=== PATIENT | female | born 1940 | race Caucasian/White ===

== ENCOUNTER 2019-05-13 09:26 | Emergency (ER) | payer OTHER ==
[~2019-05-13] VITALS: Ht 167.6 cm; Wt 56.7 kg
[2019-05-13 09:26] VITALS: BP_SYST 151
[2019-05-13] MEDS ORDERED: KETOROLAC TROMETHAMINE 30 MG VIAL IM ONE (09:45)
[2019-05-13 11:03] VITALS: BP_SYST 142
== END 2019-05-13 11:04 | disposition home or self-care (01) ==
LOC: SED 09:26
DX: M54.42 Lumbago with sciatica, left side (principal); Z91.013 Allergy to seafood
CPT/HCPCS: 72100; 72170; 81002; 96372; 99283; J1885